=== PATIENT | female | born 1990 | race Caucasian/White ===

== ENCOUNTER 2017-07-09 16:09 | Inpatient (IN) | payer OTHER ==
[2017-07-09] MEDS ORDERED: OXYTOCIN/DEXTROSE 5%-WATER 30 UNITS/500 ML BAG IV ONE (16:25)
[2017-07-09] MEDS ORDERED: LIDOCAINE HCL 50 ML VIAL PERI PRN (16:25)
[2017-07-09] MEDS ORDERED: ONDANSETRON HCL/PF 2 MG/ML VIAL IV PRN ×2 (16:25→18:43)
[2017-07-09] MEDS ORDERED: RINGER'S SOLUTION,LACTATED 1,000 ML IV ONE ×2 (16:25→17:30)
[2017-07-09] MEDS ORDERED: BUPIVACAINE HCL/0.9 % NACL/PF 250 ML EP PRN (18:43)
[2017-07-09] MEDS ORDERED: NALOXONE HCL 1 MG/1 ML SYRG IV PRN (18:43)
[2017-07-09] MEDS ORDERED: fentaNYL CITRATE/PF 50 MCG/ML AMPUL IT SCH (18:45)
--- NOTE | 2017-07-09 19:13 | OR ---
Anesthesia Pre Procedure Eval Date of Service: 07/09/17 Pre Procedure Evaluation: Anesthesia Pre Procedure Evaluation Heart Rate: 108 Blood Pressure: 143/94 Temperature: 37.1 Respiratory Rate: 18 SaO2: 99 DATE: 07/09/2017 TIME: 1909 INDICATIONS: Active labor, labor pain PAST MEDICAL HISTORY: Primipara patient in active labor requesting labor analgesia History of GERD: No History of smoking: No History of sleep apnea: No EXAM: Heart regular; lungs clear ASSESSMENT OF MEDICAL STATUS: Appropriate candidate for labor analgesia PLANNED PROCEDURE: Combination spinal epidural for labor analgesia Home Medications: HOME MEDICATIONS Vits96/Iron Fum/Folic [ S] 1 tab PO DAILY 07/09/17 [Last Taken 07/08/17]
--- NOTE | 2017-07-09 19:34 | OR ---
Anesthesia Procedure Note - Anesthesia Procedure Note Date of Service: 07/09/17 Narrative: 07/09/17 19:33 ANESTHESIA PROCEDURE NOTE Date of Procedure: 07/09/2017 Time of procedure: 1909. Performed by: GABINO Kamara CRNA, MSN Mucker Operator: Valeria Lomeli RN. Preprocedure diagnosis: Active labor, labor pain. Post procedure diagnosis: Same. Procedure:Epidural for labor analgesia L3 4. Indications: Labor pain. Findings: See below. Details of the procedure: The patient was placed on the side of the bed in sitting positionand prepped with DuraPrep then draped in a sterile fashion. Lidocaine 1% was infiltrated to the skin and subcutaneous tissues at the level of the L3 4 interspace. An 18-gauge Touhy needle was used to approach the epidural space with loss of resistance technique. Once loss of resistance was achieved a 24-gauge Pencan needle was passed through the epidural needle and CSF was contacted. After CSF returned fentanyl 20 mcg of fentanyl was injected in the spinal needle was removed the epidural catheter was then threaded approximately 4 cm in the epidural needle was removed. The catheter was taped in place and after careful aspiration 3 mL of 1.5% lidocaine with 1-200,000 epinephrine was injected without change in maternal heart rate or sensorium. . EBL: Minimal. Fluids: N/A. Specimen: N/A. Post procedure condition: The patient tolerated the procedure well with. Relief. No complications were noted. Thank you for this consultation. Jonn Hutchins CRNA, GABINO, MSN
[2017-07-09] MEDS: DEXTROSE 5%-LACTATED RINGERS 1,000 ML IV PRN (20:10)
--- NOTE | 2017-07-09 20:12 | PN ---
Progess Note - Interim Narrative: 07/09/17 20:10 Patient comfortable with epidural Vital signs stable. Smith bulb removed from cervix FHT: 120 baseline, reassuring Contractions q 2 min Cervix: 6/80/-2, AROM-clear Impression: Intrauterine at 39 weeks induction of labor for gestational hypertension, oligohydramnios, poor growth Plan: Continue present plan
[2017-07-10] MEDS: DEXTROSE 5%-LACTATED RINGERS 1,000 ML IV PRN ×2 (00:10→04:54)
[2017-07-10] MEDS ORDERED: ACETAMINOPHEN 500 MG TABLET PO ONE (02:14)
[2017-07-10] MEDS: CEFOXITIN SODIUM 2 GM in DEXTROSE 5 % IN WATER 100 ML IV SCH ×4 (03:13→08:33)
[2017-07-10] MEDS ORDERED: PRENATAL VITS96/IRON FUM/FOLIC 1 TAB TABLET PO SCH (09:00)
[2017-07-10] MEDS ORDERED: GLYCERIN/WITCH HAZEL LEAF 40 APPL BOX TP PRN (09:38)
[2017-07-10] MEDS ORDERED: BISACODYL 10 MG SUPP.RECT RC PRN (09:38)
[2017-07-10] MEDS ORDERED: BENZOCAINE/MENTHOL 81 SPRAY CAN TP PRN (09:38)
[2017-07-10] MEDS ORDERED: oxyCODONE HCL/ACETAMINOPHEN 1 TAB TABLET PO PRN ×2 (09:38)
[2017-07-10] MEDS ORDERED: HYDROCORTISONE 30 APPL TUBE TP PRN (09:38)
[2017-07-10] MEDS ORDERED: SENNOSIDES 8.6 MG TABLET PO PRN (09:38)
[2017-07-10] MEDS ORDERED: OXYTOCIN/DEXTROSE 5%-WATER 30 UNITS/500 ML BAG IV ONE (09:38)
--- NOTE | 2017-07-10 09:41 | OR ---
Operative Report - Dictated Report Narrative: Spontaneous vaginal delivery of viable female at 0906 on 07/10/2017 with Apgars 9 and 9, weighing 3232 g in TORRIE position with nuchal cord 1. Cord clamping delayed approximately 1 minute Placenta delivered complete, intact, with three vessel cord Estimated blood loss: 250 mL, mild uterine atony which responded to 30 milliunits of Pitocin intravenously and 400 g of Cytotec rectally. Lacerations: Bilateral periurethral abrasion/first-degree laceration with no repair History for MU Definition: * The number of deliveries resulting in a live the patient experienced prior to current hospitalization * The previous delivery of live twins or any live multiple gestation is considered one live event. *If primagravida or nulliparous is documented select zero for the number of previous live births. Live Events: 0
[2017-07-10] MEDS ORDERED: MISOPROSTOL 200 MCG TABLET RC SCH (09:45)
[2017-07-10] MEDS: IBUPROFEN 800 MG TABLET PO PRN ×3 (10:51→23:33)
[2017-07-10] MEDS: DOCUSATE SODIUM 100 MG CAPSULE PO SCH (21:13)
[2017-07-11] MEDS: DOCUSATE SODIUM 100 MG CAPSULE PO SCH ×2 (08:50→20:10)
[2017-07-11] MEDS: IBUPROFEN 800 MG TABLET PO PRN ×2 (08:51→15:20)
--- NOTE | 2017-07-11 12:41 | PN ---
Subjective - Date and Time Seen Date: 07/11/17 Time: 12:39 Objective - Vitals Vitals: Last Vital Signs Temp 36.3 C L 07/11/17 08:50 Pulse 105 H 07/11/17 08:50 Resp 20 07/11/17 08:50 BP 130/72 07/11/17 08:50 Pulse Ox 99 07/11/17 08:50 Patient denies complaints. Lochia wnl Abdomen - soft, nontender Uterus - firm, at umbilicus - 1 No calf tenderness Impression: day #1 - s/p spontaneous vaginal delivery. Gestational hypertension-resolved. Chorioamnionitis-resolved. Plan: Continue routine care. Awaiting results of placental cultures - preliminary reports negative. Cauti Physician Documentation - Urinary Catheter Management Urethral (Smith) Date of Insertion: 07/09/17 Time of Insertion: 20:45 Date of Removal: 07/10/17 Time of Removal: 08:55
[2017-07-12] MEDS: IBUPROFEN 800 MG TABLET PO PRN ×4 (00:02→21:14)
[2017-07-12] MEDS: DOCUSATE SODIUM 100 MG CAPSULE PO SCH ×3 (07:44→21:14)
--- NOTE | 2017-07-12 22:28 | PN ---
Subjective - Date and Time Seen Date: 07/12/17 Time: 22:25 Objective - Vitals Vitals: Last Vital Signs Temp 36.7 C 07/12/17 16:21 Pulse 93 07/12/17 16:21 Resp 16 07/12/17 16:21 BP 140/86 07/12/17 16:21 Pulse Ox 100 07/12/17 16:21 Patient denies complaints. Lochia wnl Abdomen - soft, nontender Uterus - firm, at umbilicus - 2 No calf tenderness Impression: day #2 - s/p spontaneous vaginal delivery. Chorioamnionitis-resolved (maternal side of placenta growing light staph species 48 hours after delivery - probable contaminant, awaiting ID and PAPITO). Gestational hypertension- stable. Plan: Routine discharge instructions. Preeclampsia and endometritis precautions. Cauti Physician Documentation - Urinary Catheter Management Urethral (Smith) Date of Insertion: 07/09/17 Time of Insertion: 20:45 Date of Removal: 07/10/17 Time of Removal: 08:55
[2017-07-12 22:58] VITALS: BP 127/75
== END 2017-07-12 23:59 | disposition home or self-care (01) | DRG 775 ==
LOC: OB 16:09 → MS 07-11 22:56
PROVIDERS: ADMIT Obstetrics & Gynecology; ATTEND Obstetrics & Gynecology
PROC: 10E0XZZ Delivery of Products of Conception, External Approach (ICD-10-PCS; principal; 2017-07-10)
PROC: 10907ZC Drainage of Amniotic Fluid, Therapeutic from Products of Conception, Via Natural or Artificial Opening (ICD-10-PCS; 2017-07-10)
PROC: 3E033VJ Introduction of Other Hormone into Peripheral Vein, Percutaneous Approach (ICD-10-PCS; 2017-07-10)
PROC: 4A1HXCZ Monitoring of Products of Conception, Cardiac Rate, External Approach (ICD-10-PCS; 2017-07-10)
PROC: 00HU33Z Insertion of Infusion Device into Spinal Canal, Percutaneous Approach (ICD-10-PCS; 2017-07-10)
DX: O13.4 Gestational [pregnancy-induced] hypertension without significant proteinuria, complicating childbirth (principal); O70.0 First degree perineal laceration during delivery; O69.81X0 Labor and delivery complicated by cord around neck, without compression, not applicable or unspecified; O62.2 Other uterine inertia; O36.5990 Maternal care for other known or suspected poor fetal growth, unspecified trimester, not applicable or unspecified; Z3A.39 39 weeks gestation of pregnancy; Z37.0 Single live birth
CPT/HCPCS: 59025; 87070; 87077; 87186; 88307; J2405